=== PATIENT | male | born 1955 | race Caucasian/White ===

== ENCOUNTER 2018-03-05 09:56 | Emergency (ER) | payer MEDICARE, BC ==
--- NOTE | 2018-03-05 11:27 | RAD ---
LEFT ELBOW 4 VIEWS: Date: 03/05/18 HISTORY: Left elbow injury with pain. FINDINGS: There is deformity involving the distal humerus. There is an intercondylar fracture which appears old . The margins are smooth and somewhat corticated and there are hypertrophic changes present indicatin g a chronic nonunion. There is a large joint effusion. There are prominent degenerative changes with spurring from the coronoid. There may be an acute fracture component along the lateral margin of the distal humerus, although a l arge ununited fracture extending to the medial surface appears old. IMPRESSION: Deformity and fracture of the distal humerus in the intercondylar region. Findings suggest an old unu nited fracture. An acute component is not completely excluded. There is a large joint effusion. POS: SADIE
== END 2018-03-05 12:24 | disposition home or self-care (01) ==
LOC: ERS 09:56
DX: S42.492 Other displaced fracture of lower end of left humerus (principal); E11.9 Type 2 diabetes mellitus without complications; E78.5 Hyperlipidemia, unspecified; F84.0 Autistic disorder; W22.8XXA Striking against or struck by other objects, initial encounter
CPT/HCPCS: 29105

== ENCOUNTER 2019-05-01 09:11 | Outpatient (CLI) | payer MEDICARE, BC ==
--- NOTE | 2019-05-01 10:01 | ULT ---
Exam: Liver ultrasound including color and spectral Doppler imaging: HISTORY: Elevated abnormal LFTs FINDINGS: Heterogeneous liver echogenicity evidence for nonspecific hepatic parenchymal process. Unremarkable a ppearing gallbladder. Common bile duct poorly seen. Borderline splenomegaly. Hepatic venous and portal venous flow is antegrade. IMPRESSION: Nonspecific hepatic parenchymal process, heterogeneity appears to be more marked than on prior 2015 s tudy. Borderline splenomegaly. Antegrade hepatic and portal venous flow.
== END 2019-05-01 09:12 | disposition home or self-care (01) ==
LOC: SCSULT 09:11
PROVIDERS: ATTEND Internal Medicine Gastroenterology
DX: D64.9 Anemia, unspecified (principal); R94.5 Abnormal results of liver function studies; K75.4 Autoimmune hepatitis; K74.60 Unspecified cirrhosis of liver
CPT/HCPCS: 76705

== ENCOUNTER 2021-07-14 19:16 | Inpatient (IN) | payer MEDICARE, BC ==
[2021-07-14] MEDS ORDERED: Lidocaine 1% (PF) 30 ML VIAL ONE (21:47)
[2021-07-14 22:06] LABS: #Basophils 0.1 thou/uL (0.0-0.2); #Eosinphils 0.1 thou/uL (0.0-0.7); #Lymphocytes 0.3 thou/uL (1.20-3.40); #Monocytes 0.7 thou/uL (0.11-0.59); #Neutrophils 5.7 thou/uL (1.40-6.50); %Basophils 1.7 % (0.0-1.0); %Eosinophils 1.5 % (0.0-10.0); %Lymphocytes 3.6 % (21.0-51.0); %Monocytes 10.4 % (0.0-10.0); %Neutrophils 82.8 % (42.0-75.0); Hemoglobin 14.1 g/dL (14.0-18.0); Mean Corpuscular HGB CONC 33.9 g/dL (32.0-36.0); Mean Corpuscular Hemoglobin 34.8 pg (27.0-31.0); Mean Platelet Volume 8.5 fL (7.4-10.4); Platelet Count 101 thou/uL (130-400); RBC Distribution Width 12.1 % (11.5-14.5); Red Blood Cell (RBC) Count 4.07 mill/uL (4.70-6.10); White Blood Cell (WBC) Count 6.9 thou/uL (4.8-10.8)
[2021-07-14] MEDS ORDERED: Morphine 2 MG/ML VIAL SLOW IVP PRN (22:09)
[2021-07-14] MEDS ORDERED: hydrALAZINE 20 MG/ML VIAL SLOW IVP PRN (22:09)
[2021-07-14] MEDS ORDERED: Insulin Regular 300 UNITS/3 ML VIAL SC PRN ×2 (22:09)
[2021-07-14] MEDS ORDERED: Dextrose 50% Abboject 50 ML SYRINGE SLOW IVP PRN (22:09)
[2021-07-14] MEDS ORDERED: Dextrose 5% in Water 1,000 ML IV PRN (22:09)
[2021-07-14] MEDS ORDERED: Ondansetron PF 4 MG/2 ML Vial IVP PRN (22:09)
[2021-07-14] MEDS ORDERED: Cyclobenzaprine 10 MG TAB PO PRN (22:14)
[2021-07-14] MEDS ORDERED: traMADol HCl 50 MG TAB PO PRN (22:14)
[2021-07-14 22:15] LABS: INR-International Normal Ratio 1.2; Prothrombin Time 15.6 sec (12.0-14.7)
[2021-07-14 22:16] LABS: PTT 33.6 sec (22.9-36.1)
[2021-07-14 22:22] LABS: ALT (SGPT) 34 U/L (8-55); AST (SGOT) 37 U/L (5-34); Albumin 3.3 g/dL (3.4-4.8); Alkaline Phosphatase 61 U/L (40-110); Anion Gap 9 mmol/L (10-20); BUN (Urea Nitrogen) 23 mg/dL (8.4-25.7); Bilirubin, Total 0.9 mg/dL (0.2-1.2); CK (CPK) 174 U/L (30-200); Calc. Creatinine Clearance 0 mL/min (70-130); Calcium 8.8 mg/dL (7.8-10.44); Carbon Dioxide 28 mmol/L (23-31); Chloride 105 mmol/L (98-107); Globulin 3.5 g/dL (2.4-3.5); Glucose 144 mg/dL (80-115); Potassium 4.6 mmol/L (3.5-5.1); Protein, Total 6.8 g/dL (5.8-8.1); Sodium 137 mmol/L (136-145)
[2021-07-14 23:01] LABS: Magnesium 1.8 mg/dL (1.6-2.6)
[2021-07-15 00:53] VITALS: BMI 25.3
[2021-07-15] MEDS: Sodium Chloride 0.9% 1,000 ML IV SCH ×3 (01:22→16:02)
[2021-07-15] MEDS: Acetaminophen 325 MG TAB PO SCH ×5 (01:41→21:47)
[2021-07-15] MEDS: Ketorolac Tromethamine 30 MG/ML VIAL IVP SCH ×5 (01:41→21:47)
[2021-07-15] MEDS: traMADol HCl 50 MG TAB PO SCH ×5 (01:42→23:47)
[2021-07-15] MEDS ORDERED: ceFAZolin 2 GM/Dextrose 50 ML 2 GM in Premix Bag 1 BAG IVPB SCH (07:30)
[2021-07-15 08:27] LABS: SARS-CoV-2 NAA Rapid Test Not Detected (NotDetected)
[2021-07-15] MEDS ORDERED: Sodium Phosphate 30 MMOL in Sodium Chloride 0.9% 250 ML 250 ML IVPB SCH (09:00)
[2021-07-15] MEDS ORDERED: Magnesium Sulfate 3 GM in Sodium Chloride 0.9% 100 ML IV SCH (09:00)
[2021-07-15] MEDS: Famotidine 20 MG TAB PO SCH ×2 (09:02→21:47)
[2021-07-15] MEDS: Polyethylene Glycol 3350 17 GM Packet PO SCH (09:02)
[2021-07-15] MEDS: Senokot S 8.6-50 MG TAB PO SCH ×2 (09:02→21:47)
[2021-07-15] MEDS ORDERED: Ibuprofen 200 MG TAB PO PRN (11:19)
[2021-07-15] MEDS ORDERED: ceFAZolin 2 GM/Dextrose 50 ML IVPB ONE (15:10)
[2021-07-15] MEDS ORDERED: PROPOFOL 20 ML ONE (15:55)
[2021-07-15] MEDS ORDERED: Rocuronium Bromide 50 MG/5 ML VIAL ONE (15:55)
[2021-07-15] MEDS ORDERED: ePHEDrine Sulfate 50 MG/10 ML VIAL ONE ×2 (16:12→18:11)
[2021-07-15] MEDS ORDERED: Ondansetron PF 4 MG/2 ML Vial ONE ×2 (16:13→17:20)
[2021-07-15] MEDS ORDERED: Fentanyl 100 MCG/2 ML VIAL ONE ×2 (16:53→19:39)
[2021-07-15] MEDS ORDERED: Lidocaine 1% PF 5 ML VIAL ONE (17:20)
[2021-07-15] MEDS ORDERED: Dexamethasone 20 MG/5 ML VIAL ONE (17:20)
[2021-07-15] MEDS ORDERED: PHENYLEPHRINE-NS 100 MCG/ML 10 ML SYRINGE ONE (17:20)
[2021-07-15] MEDS ORDERED: Rocuronium Bromide 10 MG/ML (10ML VIAL) ONE (17:20)
[2021-07-15] MEDS ORDERED: Glycopyrrolate 0.2 MG/ML 5 ML SYRINGE ONE (17:20)
[2021-07-15] MEDS ORDERED: ePHEDrine 50 MG/ML VIAL ONE ×2 (17:20)
[2021-07-15] MEDS ORDERED: PROPOFOL 200 MG/20 ML VIAL ONE (17:20)
[2021-07-15] MEDS ORDERED: Neomycin-Polymyxin 1 ML AMP ONE (18:04)
[2021-07-15] MEDS ORDERED: HYDROmorphone 2 MG/ML VIAL ONE (18:37)
[2021-07-15] MEDS ORDERED: Ondansetron HCl/PF 4 MG/2 ML Vial IVP PRN (19:02)
[2021-07-15] MEDS ORDERED: HYDROmorphone 2 MG/ML VIAL SLOW IVP PRN (19:02)
[2021-07-15] MEDS ORDERED: Promethazine HCl 25 MG/ML VIAL IVPB PRN (19:02)
[2021-07-15] MEDS ORDERED: Promethazine HCl 25 MG/ML VIAL IM PRN (19:02)
[2021-07-15] MEDS ORDERED: Ketorolac Tromethamine 30 MG/ML VIAL IVP PRN (19:02)
[2021-07-15] MEDS: ceFAZolin 2 GM/Dextrose 50 ML 2 GM in Premix Bag 1 BAG IVPB SCH (21:57)
[2021-07-16] MEDS: Acetaminophen 325 MG TAB PO SCH ×3 (03:46→16:55)
[2021-07-16] MEDS: traMADol HCl 50 MG TAB PO SCH ×2 (05:29→12:57)
[2021-07-16] MEDS ORDERED: Sodium Chloride 0.9% 500 ML IV SCH (05:45)
[2021-07-16 06:11] LABS: #Lymphocytes 0.3 thou/uL (1.20-3.40); #Neutrophils 8.5 thou/uL (1.40-6.50); %Basophils 0.1 % (0.0-1.0); %Eosinophils 0.1 % (0.0-10.0); %Lymphocytes 2.8 % (21.0-51.0); %Monocytes 10.1 % (0.0-10.0); %Neutrophils 86.9 % (42.0-75.0); Hemoglobin 11.6 g/dL (14.0-18.0); Mean Corpuscular HGB CONC 33.4 g/dL (32.0-36.0); Mean Corpuscular Hemoglobin 34.3 pg (27.0-31.0); Mean Platelet Volume 8.3 fL (7.4-10.4); Platelet Count 110 thou/uL (130-400); RBC Distribution Width 12.3 % (11.5-14.5); Red Blood Cell (RBC) Count 3.39 mill/uL (4.70-6.10); White Blood Cell (WBC) Count 9.8 thou/uL (4.8-10.8)
[2021-07-16 06:23] LABS: Anion Gap 11 mmol/L (10-20); BUN (Urea Nitrogen) 30 mg/dL (8.4-25.7); Calc. Creatinine Clearance 87 mL/min (70-130); Calcium 7.9 mg/dL (7.8-10.44); Carbon Dioxide 26 mmol/L (23-31); Chloride 106 mmol/L (98-107); Glucose 133 mg/dL (80-115); Potassium 4.8 mmol/L (3.5-5.1); Sodium 138 mmol/L (136-145)
[2021-07-16 06:37] LABS: Phosphorus 3.7 mg/dL (2.3-4.7)
[2021-07-16] MEDS ORDERED: Loratadine 10 MG TAB PO PRN (07:40)
[2021-07-16] MEDS: ceFAZolin 2 GM/Dextrose 50 ML 2 GM in Premix Bag 1 BAG IVPB SCH (08:30)
[2021-07-16] MEDS: Polyethylene Glycol 3350 17 GM Packet PO SCH (08:36)
[2021-07-16] MEDS: Famotidine 20 MG TAB PO SCH (08:37)
[2021-07-16] MEDS: Senokot S 8.6-50 MG TAB PO SCH (08:37)
[2021-07-16] MEDS ORDERED: Fenofibrate Nanocrystallized 145 MG TAB PO SCH (09:00)
[2021-07-16] MEDS ORDERED: Enoxaparin Sodium 40 MG/0.4 ML SYRINGE SC SCH (09:00)
[2021-07-16] MEDS: Sodium Chloride 0.9% 1,000 ML IV SCH ×2 (09:26→15:39)
[2021-07-16] MEDS ORDERED: Ibuprofen 200 MG TAB PO SCH (11:30)
[2021-07-16 17:08] VITALS: BP 110/77; TEMP 98
[2021-07-16] MEDS ORDERED: Tamsulosin HCl 0.4 MG CAP PO SCH (21:00)
[2021-07-16] MEDS ORDERED: risperiDONE 1 MG TAB PO SCH (21:00)
== END 2021-07-16 18:16 | DRG 522 ==
LOC: ERS 19:16 → SURG A 22:14
PROVIDERS: ADMIT Specialist; ATTEND Specialist
PROC: 0SRR0JA Replacement of Right Hip Joint, Femoral Surface with Synthetic Substitute, Uncemented, Open Approach (ICD-10-PCS; principal; 2021-07-15)
PROC: 0PSJXZZ Reposition Left Radius, External Approach (ICD-10-PCS; 2021-07-15)
DX: S72.001A Fracture of unspecified part of neck of right femur, initial encounter for closed fracture (principal); S52.502A Unspecified fracture of the lower end of left radius, initial encounter for closed fracture; S22.42XA Multiple fractures of ribs, left side, initial encounter for closed fracture; F84.0 Autistic disorder; I85.00 Esophageal varices without bleeding; S52.602A Unspecified fracture of lower end of left ulna, initial encounter for closed fracture; Z20.822 Contact with and (suspected) exposure to COVID-19; N40.0 Benign prostatic hyperplasia without lower urinary tract symptoms; H91.90 Unspecified hearing loss, unspecified ear; K75.4 Autoimmune hepatitis; E11.9 Type 2 diabetes mellitus without complications; E78.5 Hyperlipidemia, unspecified; R62.50 Unspecified lack of expected normal physiological development in childhood; W18.30XA Fall on same level, unspecified, initial encounter; Y92.129 Unspecified place in nursing home as the place of occurrence of the external cause; Z90.49 Acquired absence of other specified parts of digestive tract; Z79.899 Other long term (current) drug therapy
CPT/HCPCS: 25605; 36415; 36416; 70450; 71045; 72125; 72170; 76000; 80048; 80053; 82550; 83735; 84100; 84484; 85025; 85610; 85730; 86850; 86900; 86901; 93005; G0390; J0690; J1100; J1170; J1650; J1885; J2001; J2405; J2704; J3010; J3475; J3490; J7030; J7050; U0002